=== PATIENT | female | born 1965 | race Caucasian/White ===

== ENCOUNTER 2025-01-29 06:54 | Day surgery (SDC) | payer OTHER ==
[~2025-01-29] VITALS: Ht 153.7 cm; Wt 56.8 kg
[~2025-01-29 06:54] MED LIST: SODIUM CHLORIDE 0.9% 1,000 ML ONE
[2025-01-29] MEDS: SODIUM CHLORIDE 0.9% 1,000 ML IV ONE (07:51)
[2025-01-29] MEDS ORDERED: FentaNYL CITRATE PF 100 MCG/2 ML VIAL ONE (08:10)
[2025-01-29] MEDS ORDERED: MIDAZOLAM HCL 2 MG/2 ML VIAL ONE (08:11)
[2025-01-29 09:40] VITALS: PULSE 83; RESP 20; O2SAT 98
[2025-01-29] MEDS ORDERED: SODIUM CHLORIDE 0.9% 1,000 ML IV ONE (10:30)
[2025-01-29] MEDS ORDERED: LIDOCAINE 4% 50 ML SOLUTION ONE (12:00)
[2025-01-29] MEDS ORDERED: LIDOCAINE 2% 11 ML JELLY ONE (12:00)
[2025-01-29] MEDS ORDERED: ALBUTEROL SULFATE 2.5 MG/0.5 ML NEB SOLUTION NEB ONE (12:00)
[2025-01-29] MEDS ORDERED: BENZOCAINE 20% 50 MCG/SPRAY 57 GM ONE (12:00)
== END 2025-01-29 15:25 | disposition home or self-care (01) ==
LOC: SDS 06:54
PROVIDERS: ATTEND Internal Medicine Critical Care Medicine
DX: R05.3 Chronic cough (principal); J38.4 Edema of larynx; B37.0 Candidal stomatitis; Z79.899 Other long term (current) drug therapy; Z98.890 Other specified postprocedural states; Z90.710 Acquired absence of both cervix and uterus
CPT/HCPCS: 31623; 93005; 87206; 87101; 87220; 87070; 88108; 31624; 94760; 71045; 87015; J3010; J2250; J2919; J7030; J7613; Z7610